=== PATIENT | male | born 1980 | race Caucasian/White ===

== ENCOUNTER 2017-02-27 10:06 | Emergency (ER) | payer MEDICAID ==
[~2017-02-27] VITALS: Ht 180.3 cm; Wt 73.5 kg
[2017-02-27 10:08] VITALS: Ht 180.3 cm; Wt 73.5 kg
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
[2017-02-27] MEDS ORDERED: HYDROCODONE/APAP (5/325) TAB PO ONE ×2 (11:30→13:00)
[2017-02-27] MEDS ORDERED: DIPHTH/TET/ACEL PERTUSS (ADULT) 0.5 ML VIAL IM* ONE ×2 (11:30)
--- NOTE | 2017-02-27 12:17 | RADRPT ---
PROCEDURE: CT brain without contrast CLINICAL INDICATION: Head trauma/injury TECHNIQUE: CT of the brain without contrast was performed on a multidetector CT scanner, with multi planar reformats. One or more of the following dose reduction techniques were used: Automated expos ure control, adjustment in mA and / or kV according to patient size, use of iterative reconstructive technique. CTDIvol = 43 mGy; DLP = 720 mGy-cm. COMPARISON: None available FINDINGS: No acute intracranial hemorrhage is identified. No extra-axial fluid collection is seen. There is no mass effect. No midline shift is identified. Ventricles and sulci are within normal limits for size and configuration. The density of the brain is unremarkable. Younger-white differentiation is preserved. Calvarium and skull base are intact. Mastoid air cells and imaged paranasal sinuses grossly clear. Partially imaged is a comminuted right zygomatic arch fracture. IMPRESSION: 1. No evidence of acute intracranial pathology; unremarkable noncontrast CT of the brain. 2. Comminuted right zygomatic arch fracture. See separate facial CT report for additional details. RPTAT: VV .Harvey Bonds MD, MD Date Time Electronically viewed and signed by .Harvey Bonds MD, on 02/27/2017 12:16 .O/
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
[2017-02-27] MEDS ORDERED: HYDR-902 PO (12:47)
[2017-02-27 13:07] VITALS: BP 128/64; PULSE 66; RESP 18; TEMP 98.3
== END 2017-02-27 13:07 | disposition home or self-care (01) ==
LOC: FTE 10:06
DX: S02.40EA Zygomatic fracture, right side, initial encounter for closed fracture (principal); S02.2XXA Fracture of nasal bones, initial encounter for closed fracture; W22.8XXA Striking against or struck by other objects, initial encounter; Y92.9 Unspecified place or not applicable; Z23 Encounter for immunization
CPT/HCPCS: 70450; 70486; 90471; 90715; Z7502; Z7610